=== PATIENT | male | born 1965 | race Caucasian/White ===

== ENCOUNTER 2016-07-05 14:03 | Emergency (ER) | payer MEDICAID ==
[2016-07-05 14:25] VITALS: BP 129/72
--- NOTE | 2016-07-05 14:27 | ERNOTE ---
Lower Extremity HPI - Narrative Date of Service: 07/05/16 - General Lower Extremities Pain: knee: right Time Seen by Provider: 07/05/16 14:15 Source: patient Exam Limitations: no limitations - Immun/Allergies/Home Medications Immunizations: IMMUNIZATION HX Immunizations Up to Date No History of Influenza Vaccine No Hx Pneumococcal Vaccination No Allergies/Adverse Reactions: Allergies Allergy/AdvReac Type Severity Reaction Status Date / Time No Known Allergies Allergy Verified 02/26/16 14:33 Home Medications: HOME MEDICATIONS Tenofovir Disoproxil Fumarate [Viread] 300 mg PO DAILY 04/10/15 [Last Taken Unknown] Furosemide [Lasix] 20 mg PO DAILY 12/13/15 [Last Taken Unknown] Potassium 03/18/16 [Last Taken Unknown] Naproxen [Naprosyn] 500 mg PO BID PRN #60 tab 07/05/16 [Last Taken Unknown] - History of Present Illness Narrative: Pt. comes in with c/o R lateral knee puncture wound that he obtained just prior to arrival from a pocket knife while he was trying to cut wire. Pt. states that his last tetanus shot was 3 months ago. Pt. denies any SOB, CP, NVD, numbness, or tingling. Review of Systems - Review of Systems Constitutional: Present: no symptoms reported. Absent: recent illness, fever, chills, weakness, fatigue, malaise EYE: Present: no symptoms reported ENT: Present: no symptoms reported Respiratory: Present: no symptoms reported. Absent: shortness of breath, cough , wheezing Cardiology: Present: no symptoms reported. Absent: chest pain, palpitations, edema Gastrointestinal/Abdominal: Present: no symptoms reported. Absent: nausea, vomiting, diarrhea Musculoskeletal: Present: no symptoms reported. Absent: back pain, joint pain Skin: Present: other - laceration R lower leg Neurological: Present: no symptoms reported. Absent: headache, dizziness/light- headedness All Other Systems: All systems neg except as marked - Patient's Past Medical History Patient History - Medical: Liver Disease, Other - adenocarcinoma Patient History - Cardiac/Respiratory: No pertinent hx Patient History - Cancer: Lymphoma, Chemotherapy history Patient History - Surgical Procedures: Colon Resection, T & A Patient History - Other: None - Family History Father Family History - Medical: Mother Family History - Medical: No pertinent hx Family History - Cardiac/Respiratory: History Unknown - Social History Living Situations: spouse Abuse History: No History of abuse Psych History: No pertinent hx Does anyone smoke in the home?: No Smoking Status: Current every day smoker Do you dip or chew tobacco: No Alcohol Use: occasionally Drug Use: marijuana - Immunizations Immunizations Up to Date: No Hx Pneumococcal Vaccination: No History of Influenza Vaccine: No Physical Exam - Physical Exam General Appearance: Present: wd/wn, alert, no apparent distress Eye Exam: Normal inspection: bilateral, PERRL: bilateral, EOMI: bilateral Ears, Nose, Throat: Present: normal ENT inspection, hearing grossly normal, normal pharynx Neck: Present: normal inspection, nontender. Absent: lymphadenopathy (R), lymphadenopathy (L) Respiratory: Present: no respiratory distress, normal breath sounds, no accessory muscle use, chest nontender, lungs clear Cardiovascular/Chest: Present: regular rate, rhythm, no murmur, normal peripheral pulses Back Exam: Present: normal inspection, normal range of motion, no CVA tenderness , no vertebral tenderness Extremity Exam: Present: no edema, normal range of motion, other - laceration RLE 1.5cm Neurological Exam: Present: alert, oriented, normal mood/affect, no motor/ sensory deficits ED Progress - Results and Orders Patient's Lab Results:: I have reviewed the patient's lab results. - Vital Signs Patient's Vital Signs:: I have reviewed the patient's vital signs. Vital Signs: Vital Signs 07/05/16 14:06 Temperature 36.1 C L Pulse Rate 114 H Respiratory 18 Rate Blood Pressure 128/72 O2 Sat by Pulse 98 Oximetry - Progress/Reassessment Chief Complaint: Lower Extremity Pain/ Injury Procedures Right Lower Leg Anesthesia: 1% Lidocaine I & D Prep: betadine prep Length of Repair/Wound (cm): 1.5 Wound's Depth/Shape: into subcutaneous, linear Wound Explored: clean, to base, no foreign body Wound Intervention: irrigated w/saline Distal NVT: neuro/vasc intact, no tendon injury Wound Repaired With: sutures Suture Size/Type: 4-0, silk Number of Sutures: 3 Layer Closure: Simple Estimated blood loss (ml): 10 Wound Dressing: sterile dressing applied Complications: Pt judd procedure well Departure Clinical Impression: Laceration Liver failure Qualifiers: Liver failure chronicity: chronic Hepatic coma status: without hepatic coma Qualified Code(s): K72.10 - Chronic hepatic failure without coma - Departure Disposition: Home self-care Condition: Good Instructions: Laceration Care, Adult, [id number] Additional Instructions: Please follow up in 7-10 days for suture removal. Apply neosporin to wound twice a day. Referrals: Primitivo London MD [Primary Care Provider] - Prescriptions: Naproxen [Naprosyn] 500 mg PO BID PRN #60 tab PRN Reason: Pain
[2016-07-05 14:37] LABS: Hematocrit 32.9 % (42.0-52.0); Hemoglobin 11.1 gm/dL (13.5-18.0); Mean Cell Volume 101.9 fl (78-100); Mean Corpuscular Hemoglobin 34.4 pg (27-31); Mean Corpuscular Hgb Conc 33.7 g/dl (32-36); Mean Platelet Volume 8.4 fl (6.0-9.5); Neutrophil # 2.8 K/mm3 (1.3-6.0); Neutrophil % 47.6 % (42-75.0); Platelet Count 108 K/mm3 (150-450); Red Blood Count 3.23 M/mm3 (4.7-6.0); Red Cell Distribution Width 12.9 % (11.5-14.0); White Blood Count 5.9 K/mm3 (4.0-10.5)
[2016-07-05 14:49] LABS: Prothrombin Time (Patient) 12.5 Seconds (9.4-11.4)
[2016-07-05 14:50] LABS: INR 1.2 INR (0.90-1.10)
[2016-07-05 14:52] LABS: Albumin * 2.7 gm/dl (3.4-5.0); Anion Gap 10.5 mmol/L (6.8-13.8); BUN/Creatinine Ratio 12.6 (9.0-21.6); Bilirubin, Total 1.4 mg/dL (0.0-1.1); Ca. Corrected For Albumin 9.6 mg/dL (8.4-10.2); Calcium * 8.9 mg/dL (7.9-10.9); Carbon Dioxide 30.1 mmol/L (24-32.6); Potassium 3.6 mmol/L (3.4-4.6); Total Protein 6.2 gm/dL (6.2-8.2)
--- OUTSIDE RECORDS SUMMARY | 2016-07-05 14:54 | XMS REPORT | Continuity of Care Document ---
:1965 Author Organization [facility] ([facility]) Address [address] [place] [address] Phone [phone] Care Team Providers Name Role Phone Primitivo London Primary Care Provider [phone] Source Comments This disclosure is being made pursuant to the Care Everywhere program, applicable federal and state laws, and may not contain all informaitonavailable regarding this patient.[facility] ([facility]) Active Allergies and Adverse Reactions No Known Allergies Current Medications Prescription Sig. Disp. Refills Start Date End Date Status fluticasone 50 Use 2 sprays in 16 g 11 01/02/2016 Active mcg/Actuation nasal each nostril spray daily. riFAXimin (XIFAXAN) 550 Take 1 tablet 60 tablet 03/14/2016 Active mg tablet (550 mg total) by mouth 2 times daily. lactulose 10 g/15 mL Take 45 mL (30 g 946 mL 03/14/2016 Active solution total) by mouth 3 times daily. tenofovir (VIREAD) 300 Take 1 tablet 30 tablet 03/14/2016 Active mg tablet (300 mg total) by mouth daily. propranolol 10 mg Take 1 tablet 60 tablet 03/14/2016 Active tablet (10 mg total) by mouth 2 times daily. spironolactone 25 mg Take 4 tablets 120 tablet 03/14/2016 Active tablet (100 mg total) by mouth daily. potassium chloride 10 Take 2 tablets 120 tablet 03/14/2016 Active mEq XR tablet (20 mEq total) by mouth 2 times daily. furosemide 40 mg tablet Take 1 tablet 30 tablet 03/14/2016 Active (40 mg total) by mouth daily. 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 This is high risk situationand should start to resolve before he will be ready for discharge. 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 12/04/2014 Degeneration of intervertebral disc, site unspecified 07/15/1999 Most Recent Encounters Date Type Specialty Providers Description 07/02/2016 Office Visit Med GI/Hepatology Default, Other Subj: Upcoming Appt Billg - Defo Reminder Maxime Michel MD Rangarajan Murali, Arvind, MD 06/16/2016 Office Visit Med Hematology and Lorenzo Chen MD Dx: DLBCL ( diffuse Oncology large B cell lymphoma) Immunizations Name Dates Previously Given Next Due Tdap 03/07/2015 Social History Tobacco Use Types Packs/Day Years Used Date Current Some Day Smoker Cigarettes 0.5 40 Smokeless Tobacco: Never Used Tobacco Cessation:Ready to Quit: No; Counseling Given: Yes Comments:He has cut back to a quarter of a pack per day Alcohol Use Drinks/Week oz/Week Comments Yes 0 Standard drinks or equivalent 0.0 He is to take alcohol socially. Histroy of heavy alcohol use Last Filed Vital Signs Vital Sign Reading Time Taken Blood Pressure 130/62 06/16/2016 12:53 PM RAW HIDE TRIMMER Pulse 99 06/16/2016 12:53 PM RAW HIDE TRIMMER Temperature 36.3 C (97.3 F) 06/16/2016 12:53 PM RAW HIDE TRIMMER Respiratory Rate 18 06/16/2016 12:53 PM RAW HIDE TRIMMER Height 1.829 m (6') 01/02/2016 1:55 PM CDT Weight 103.1 kg (227 lb 4.7 oz) 06/16/2016 12:53 PM RAW HIDE TRIMMER Body Mass Index 30.82 06/16/2016 12:53 PM RAW HIDE TRIMMER Oxygen Saturation 97% 06/16/2016 12:53 PM RAW HIDE TRIMMER Plan of Care Date Type Specialty Providers Description 09/03/2016 Appointment Radiology Chief Comp: Patient Reported Reason For Visit 09/03/2016 Appointment Med GI/Hepatology Default, Other Billg - Defo [address] [place] [address] [phone] (Fax) Chief Comp: Patient Maxime Michel MD [address] [place] [address] [phone] (Fax) Reported Reason For Sammy Garcia MD [address] [place] [address] [phone] (Fax) Visit 10/13/2016 Appointment Med Hematology and Lorenzo Chen MD Chief Comp: Patient Oncology [address] [facility] [place] [address] Visit [phone] (Fax) Health Maintenance Due Date Last Done Comments Lipid Disorder Screening 1981 MMR Vaccine 1981 Pneumococcal Vaccine (1 of 3 1982 - PCV13) Colonoscopy 06/11/2013 Prostate Cancer Screening 2013 Influenza Vaccine: Seasonal 12/24/2015 (#1) Td Vaccine 03/07/2025 03/07/2015 HCV Screening Completed 11/21/2014 Tdap Vaccine Completed 03/07/2015 Hepatitis B Vaccine Completed 03/12/2016, Additional history exists 01/02/2016, 01/02/2016 Results from Last 3 Months DIFFERENTIAL (06/16/2016 12:51 PM) Component Value Range % Neutrophils-Auto Diff 44.8 % Neutrophils-Auto Diff 2660 2960-4021 /MM3 % Lymphocytes-Auto Diff 20.2 % Lymphocytes-Auto Diff 7760 291-2295 /MM3 % Monocytes-Auto Diff 9.2 % Monocytes-Auto Diff 550 130-860 /MM3 % Eosinophils-Auto Diff 24.0 % Eosinophils-Auto Diff 1430(H) 40-390 /MM3 % Basophils 1.5 % Basophils-Auto Diff 90 10-136 /MM3 % Immature Granulocytes-Auto Diff 0.3 % Immature Granulocytes-Auto Diff 20 /MM3 Specimen Blood CBC (COMPLETE BLOOD COUNT) (06/16/2016 12:51 PM) Component Value Range WBC Count 6.0 3.7-10.5 K/MM3 RBC Count 3.27(L) 4.50-6.20 M/MM3 Hemoglobin 11.4(L) 13.2-17.7 g/dL Hematocrit 34(L) 40-52 % MCV (Mean Corpuscular Volume) 103(H) 82-99 FL MCH (Mean Corpuscular Hemoglobin) 35 25-35 PG MCHC (Mean Corpuscular Hemoglobin Concentration) 34 32-36 % Platelet Count 89(L) 150-400 K/MM3 MPV (Mean Platelet Volume) 8.7(L) 9.4-12.3 FL RBC Dist Width-STD 49.9(H) 35.1-43.9 FL RBC Distrib Width 13.2 9.0-14.5 % Nucleated RBC 0 /100 WBC Specimen Blood LACTIC ACID DEHYDROGENASE (06/16/2016 12:51 PM) Component Value Range LDH 263(H) 135-225 U/L Specimen Blood CHLORIDE (06/16/2016 12:51 PM) Component Value Range Chloride 103 95-107 mEq/L Specimen Blood BLOOD UREA NITROGEN (06/16/2016 12:51 PM) Component Value Range BUN 6(L) 10-20 mg/dL Specimen Blood ASPARTATE AMINOTRANSFERASE (06/16/2016 12:51 PM) Component Value Range AST 36Comment: 0-40 U/L Adult reference ranges updated on 04/19/13 at 830am Specimen Blood ALANINE AMINOTRANSFERASE (06/16/2016 12:51 PM) Component Value Range ALT 19Comment: 0-41 U/L The upper limit of normal for alanine aminotransferase (ALT) reference ranges for adults is controversial with some authorities recommending limit as low as 30 U/L for males and 19 U/L for females. Th ere is increased incidence of subclinical liver disease (e.g., early steatohepatitis) in patients with ALT values in the range of 31-41 U/L for males and 20-33 U/L for females. ALT values should alway s be interpreted in conjunction with clinical history, physical examination findings, and, if applicable, data from other diagnostic tests. Specimen Blood SODIUM (06/16/2016 12:51 PM) Component Value Range Sodium 140 135-145 mEq/L Specimen Blood TOTAL PROTEIN (06/16/2016 12:51 PM) Component Value Range Total Protein 5.6(L) 6.0-8.0 g/dL Specimen Blood POTASSIUM (06/16/2016 12:51 PM) Component Value Range Potassium 3.4(L) 3.5-5.0 mEq/L Specimen Blood ALKALINE PHOSPHATASE (06/16/2016 12:51 PM) Component Value Range ALP 157(H) 40-129 U/L Specimen Blood GLUCOSE (06/16/2016 12:51 PM) Component Value Range Glucose 129(H)Comment: 65-99 mg/dL The Expert Committee on the Diagnosis and Classification of Diabetes has defined impaired fasting glucose as greater than or equal to 100 mg/dL but less than 126 mg/dL.(Diabetes Care 28 (Suppl 1)S41,2005) Specimen Blood CREATININE (06/16/2016 12:51 PM) Component Value Range Creatinine 0.8Comment: 0.6-1.2 mg/dL Creatinine switched to enzymatic method on 10/01/2010.GFR equation switched to IDMS-traceable MDRD equation on 10/01/2010. Calculated GFR values are not valid in clinical settings where serum creatinine is changing. Calculated GFR >90 >60 mL/min/1.73 m2 Specimen Blood CO2 (06/16/2016 12:51 PM) Component Value Range CO2 28 22-29 mEq/L Anion Gap 9 8-18 mEq/L Specimen Blood CALCIUM (06/16/2016 12:51 PM) Component Value Range Calcium 8.4(L) 8.5-10.5 mg/dL Specimen Blood BILIRUBIN, TOTAL (06/16/2016 12:51 PM) Component Value Range Bilirubin Total 1.0 <=1.2 mg/dL Specimen Blood ALBUMIN (06/16/2016 12:51 PM) Component Value Range Albumin 2.8(L) 3.4-4.8 g/dL Specimen Blood CBC WITH DIFFERENTIAL (06/16/2016 12:51 PM) Specimen Blood Narrative The following orders were created for panel order CBC WITH DIFFERENTIAL. Procedure Abnormality Status --------- ------ CBC (COMPLETE BLOOD COUNT)[[id number]] AbnormalFinal result DIFFERENTIAL[[id number]] AbnormalFinal result Please view results for these tests on the individual orders.
[2016-07-05] MEDS ORDERED: LIDOCAINE HCL 20 ML VIAL ONE (15:08)
== END 2016-07-05 16:55 | disposition home or self-care (01) ==
LOC: ER 14:03
PROC: 0JQN0ZZ Repair Right Lower Leg Subcutaneous Tissue and Fascia, Open Approach (ICD-10-PCS; principal; 2016-07-05)
DX: S81.811A Laceration without foreign body, right lower leg, initial encounter (principal); K72.10 Chronic hepatic failure without coma; Z85.72 Personal history of non-Hodgkin lymphomas; Z92.21 Personal history of antineoplastic chemotherapy; F17.210 Nicotine dependence, cigarettes, uncomplicated; W26.0XXA Contact with knife, initial encounter; Y93.E9 Activity, other interior property and clothing maintenance

== ENCOUNTER 2016-07-25 01:38 | Emergency (ER) | payer MEDICAID ==
[2016-07-25 01:50] VITALS: BP 159/85
--- OUTSIDE RECORDS SUMMARY | 2016-07-25 02:09 | XMS REPORT | Continuity of Care Document ---
:1965 Author Organization [facility] ([facility]) Address [address] [place] [address] Phone [phone] Care Team Providers Name Role Phone Primitivo London Primary Care Provider [phone] Source Comments This disclosure is being made pursuant to the Care Everywhere program, applicable federal and state laws, and may not contain all informaitonavailable regarding this patient.[facility] ([facility]) Active Allergies and Adverse Reactions No Known [...] Taken Blood Pressure 130/62 06/16/2016 12:53 PM SENIOR ELECTRONICS ENGINEER Pulse 99 06/16/2016 12:53 PM SENIOR ELECTRONICS ENGINEER Temperature 36.3 C (97.3 F) 06/16/2016 12:53 PM SENIOR ELECTRONICS ENGINEER Respiratory Rate 18 06/16/2016 12:53 PM SENIOR ELECTRONICS ENGINEER Height 1.829 m (6') 01/02/2016 1:55 PM CDT Weight 103.1 kg (227 lb 4.7 oz) 06/16/2016 12:53 PM SENIOR ELECTRONICS ENGINEER Body Mass Index 30.82 06/16/2016 12:53 PM SENIOR ELECTRONICS ENGINEER Oxygen Saturation 97% 06/16/2016 12:53 PM SENIOR ELECTRONICS ENGINEER Plan of Care Date Type Specialty Providers Description 09/03/2016 Appointment Radiology Chief Comp: Patient Reported Reason For Visit 09/03/2016 Appointment Med GI/Hepatology Default, Other Billg - Defo [address] [place] [address] [phone] (Fax) Chief Comp: Patient Maxime Michel MD [address] [place] [address] [phone] (Fax) Reported Reason For Sammy Garcia MD [address] [place] [address] [phone] (Fax) Visit 10/13/2016 Appointment Med Hematology and Lorenzo Chen MD Chief Comp: Patient Oncology [address] [facility] [place] [address] Visit [phone] (Fax) Health Maintenance Due Date Last Done [...] Neutrophils-Auto Diff 44.8 % Neutrophils-Auto Diff 2660 4363-2829 /MM3 % Lymphocytes-Auto Diff 20.2 % Lymphocytes-Auto Diff 9727 648-2396 /MM3 % Monocytes-Auto Diff 9.2 % Monocytes-Auto [...] Abnormality Status --------- ------ CBC (COMPLETE BLOOD COUNT)[[id number]] AbnormalFinal result DIFFERENTIAL[[id number]] AbnormalFinal result Please view results for these tests on the individual orders.
[2016-07-25 02:11] LABS: Hematocrit 36.9 % (42.0-52.0); Hemoglobin 12.5 gm/dL (13.5-18.0); Mean Cell Volume 103.1 fl (78-100); Mean Corpuscular Hemoglobin 34.9 pg (27-31); Mean Corpuscular Hgb Conc 33.9 g/dl (32-36); Mean Platelet Volume 8.4 fl (6.0-9.5); Neutrophil # 2.1 K/mm3 (1.3-6.0); Neutrophil % 44.9 % (42-75.0); Platelet Count 114 K/mm3 (150-450); Red Blood Count 3.58 M/mm3 (4.7-6.0); Red Cell Distribution Width 13.1 % (11.5-14.0); White Blood Count 4.7 K/mm3 (4.0-10.5)
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
[2016-07-25 02:36] LABS: Albumin * 2.8 gm/dl (3.4-5.0); Anion Gap 11.8 mmol/L (6.8-13.8); BUN/Creatinine Ratio 18.6 (9.0-21.6); Ca. Corrected For Albumin 9.4 mg/dL (8.4-10.2); Calcium * 8.8 mg/dL (7.9-10.9); Carbon Dioxide 25.9 mmol/L (24-32.6); Potassium 3.7 mmol/L (3.4-4.6); Total Protein 7.3 gm/dL (6.2-8.2)
== END 2016-07-25 02:49 ==
LOC: ER 01:38
DX: R42 Dizziness and giddiness (principal); Z18.89 Other specified retained foreign body fragments; Z48.02 Encounter for removal of sutures

== ENCOUNTER 2016-07-25 12:35 | Emergency (ER) | payer MEDICAID ==
[2016-07-25 12:42] VITALS: BP 161/90
--- NOTE | 2016-07-25 12:44 | ERNOTE ---
Medical Problem HPI - Narrative Date of Service: 07/25/16 - General Chief Complaint: General Assessment Time Seen by Provider: 07/25/16 12:42 Source: patient, police Exam Limitations: no limitations - Immun/Allergies/Home Medications Immunizations: IMMUNIZATION HX Immunizations Up to Date No History of Influenza Vaccine No Hx Pneumococcal Vaccination No Allergies/Adverse Reactions: Allergies No Known Allergies Allergy (Verified 07/25/16 12:42) Home Medications: HOME MEDICATIONS Tenofovir Disoproxil Fumarate [Viread] 300 mg PO DAILY 04/10/15 [Last Taken Unknown] Furosemide [Lasix] 20 mg PO DAILY 12/13/15 [Last Taken Unknown] Potassium 03/18/16 [Last Taken Unknown] Naproxen [Naprosyn] 500 mg PO BID PRN #60 tab 07/05/16 [Last Taken Unknown] - History of Present History Narrative: Patient was send by the Medical Staff at the [facility] to be evaluated for a Stroke. Timing: other - Patient has no medical problem to report. Modifying Factors - (Improves): Present: other - nothing Modifying Factors - (Worsens): Present: other - nothing Review of Systems - Review of Systems Constitutional: Present: no symptoms reported. Absent: fever, chills EYE: Present: no symptoms reported ENT: Present: no symptoms reported Respiratory: Present: no symptoms reported. Absent: shortness of breath, cough Cardiology: Present: no symptoms reported. Absent: chest pain Gastrointestinal/Abdominal: Present: no symptoms reported. Absent: nausea, vomiting, diarrhea, abdominal pain Genitourinary: Present: no symptoms reported Skin: Present: no symptoms reported Neurological: Present: no symptoms reported. Absent: headache, dizziness/light- headedness, seizure, weakness, numbness, tingling, tremors Endocrine: Present: no symptoms reported Hematologic/Lymphatic: Present: no symptoms reported Psych: Present: no symptoms reported All Other Systems: All systems neg except as marked - Patient's Past Medical History Patient History - Medical: Liver Disease, Other Patient History - Cardiac/Respiratory: No pertinent hx, Hypertension Patient History - Cancer: Lymphoma, Chemotherapy history Patient History - Surgical Procedures: Colon Resection, T & A Patient History - Other: None - Family History Father Family History - Medical: Mother Family History - Medical: No pertinent hx Family History - Cardiac/Respiratory: History Unknown - Social History Living Situations: home Abuse History: No History of abuse Psych History: No pertinent hx Does anyone smoke in the home?: No Alcohol Use: occasionally Drug Use: marijuana - Immunizations Immunizations Up to Date: No Hx Pneumococcal Vaccination: No History of Influenza Vaccine: No Physical Exam - Physical Exam General Appearance: Present: wd/wn, alert, no apparent distress Eye Exam: Normal inspection: bilateral Ears, Nose, Throat: Present: normal ENT inspection Neck: Present: normal inspection, nontender Respiratory: Present: no respiratory distress, normal breath sounds, no accessory muscle use, chest nontender, lungs clear Cardiovascular/Chest: Present: regular rate, rhythm, no murmur, normal peripheral pulses Gastrointestinal/Abdominal: Present: normal bowel sounds, nontender, nondistended, soft, no organomegaly Back Exam: Present: normal inspection, normal range of motion, no CVA tenderness , no vertebral tenderness Extremity Exam: Present: normal inspection, non-tender, normal range of motion, no edema, other - Patient moving all extremities with a 5/5 force. No pronator drift found on evaluation. Neurological Exam: Present: alert, oriented, normal mood/affect, no motor/ sensory deficits, neonatal icu coordinator II-XII nml as tested Skin Exam: Present: normal color, warm/dry Lymphatic Exam: Present: no adenopathy ED Progress - Date and Time Seen: Date and Time: 07/25/16 12:47 GCS: 15/15 NIH Stroke Scale: 0 Patient at the moment does not know why he was send to the ER. RN at the ER stated that MUSHROOM SORTER GRADER from the senior care send patient to be evaluated for stroke. Patient at the moment has no pain, no gross neurological deficits, good force in all extremities, propioception, an intact mental status, no pain, no respiratory distress, and feeling good. At this point patient has a very low probability of any acute neurological condition. Patient has no identified emergency and has no limb threatening condition. Patient is welcome back to return if any symptom occurs and can be reproducible at the ER. - Vital Signs Patient's Vital Signs:: I have reviewed the patient's vital signs. Vital Signs: Vital Signs 07/25/16 12:37 Temperature 36.5 C Pulse Rate 85 Respiratory 12 Rate Blood Pressure 161/90 O2 Sat by Pulse 99 Oximetry - Progress/Reassessment Chief Complaint: General Assessment - Transfer of Care Expected Disposition: Discharge Departure - Departure Clinical Impression: Evaluation by medical service required Disposition: Assisted Instructions: Stroke Prevention Additional Instructions: GCS: 15/15 NIH Stroke Scale: 0 Patient at the moment does not know why he was send to the ER. RN at the ER stated that MUSHROOM SORTER GRADER from the senior care send patient to be evaluated for stroke. Patient at the moment has no pain, no gross neurological deficits, good force in all extremities, propioception, an intact mental status, no pain, no respiratory distress, and feeling good. At this point patient has a very low probability of any acute neurological condition. Patient has no identified emergency and has no limb threatening condition. Patient is welcome back to return if any symptom occurs and can be reproducible at the ER.
--- OUTSIDE RECORDS SUMMARY | 2016-07-25 12:53 | XMS REPORT | Continuity of Care Document ---
:1965 Author Organization [facility] ([facility]) Address [address] [place] [address] Phone [phone] Care Team Providers Name Role Phone Primitivo London Primary Care Provider [phone] Source Comments This disclosure is being made pursuant to the Care Everywhere program, applicable federal and state laws, and may not contain all informaitonavailable regarding this patient.[facility] ([facility]) Active Allergies and Adverse Reactions No Known [...] Recent Encounters Date Type Specialty Providers Description 07/25/2016 Telephone Cancer Center Jenifer Sanchez 07/25/2016 Telephone Cancer Center Graciela Rodriguez Chief Comp: Fall 07/02/2016 Office Visit Med GI/Hepatology Default, Other [...] Taken Blood Pressure 130/62 06/16/2016 12:53 PM BED WORKER Pulse 99 06/16/2016 12:53 PM BED WORKER Temperature 36.3 C (97.3 F) 06/16/2016 12:53 PM BED WORKER Respiratory Rate 18 06/16/2016 12:53 PM BED WORKER Height 1.829 m (6') 01/02/2016 1:55 PM CDT Weight 103.1 kg (227 lb 4.7 oz) 06/16/2016 12:53 PM BED WORKER Body Mass Index 30.82 06/16/2016 12:53 PM BED WORKER Oxygen Saturation 97% 06/16/2016 12:53 PM BED WORKER Plan of Care Date Type Specialty Providers Description 09/03/2016 Appointment Radiology Chief Comp: Patient Reported Reason For Visit 09/03/2016 Appointment Med GI/Hepatology Default, Other Billg - Defo [address] [place] [address] [phone] (Fax) Chief Comp: Patient Maxime Michel MD [address] [place] [address] [phone] (Fax) Reported Reason For Sammy Garcia MD [address] [place] [address] [phone] (Fax) Visit 10/13/2016 Appointment Med Hematology and Lorenzo Chen MD Chief Comp: Patient Oncology [address] [facility] [place] [address] Visit [phone] (Fax) Health Maintenance Due Date Last Done [...] Neutrophils-Auto Diff 44.8 % Neutrophils-Auto Diff 2660 [id number] /MM3 % Lymphocytes-Auto Diff 20.2 % Lymphocytes-Auto Diff 2394 515-7348 /MM3 % Monocytes-Auto Diff 9.2 % Monocytes-Auto [...] Abnormality Status --------- ------ CBC (COMPLETE BLOOD COUNT)[[id number]] AbnormalFinal result DIFFERENTIAL[[id number]] AbnormalFinal result Please view results for these tests on the individual orders.
== END 2016-07-25 13:00 ==
LOC: ER 12:35
DX: Z03.89 Encounter for observation for other suspected diseases and conditions ruled out (principal)

== ENCOUNTER 2016-09-21 12:31 | Emergency (ER) | payer MEDICAID ==
[2016-09-21 13:16] LABS: Hematocrit 38.9 % (42.0-52.0); Hemoglobin 13.5 gm/dL (13.5-18.0); Mean Corpuscular Hgb Conc 34.7 g/dl (32-36); Mean Platelet Volume 8.7 fl (6.0-9.5); Neutrophil # 2.9 K/mm3 (1.3-6.0); Neutrophil % 48.1 % (42-75.0); Platelet Count 123 K/mm3 (150-450); Red Blood Count 3.97 M/mm3 (4.7-6.0); Red Cell Distribution Width 12.9 % (11.5-14.0); White Blood Count 6.1 K/mm3 (4.0-10.5)
[2016-09-21] MEDS ORDERED: MECLIZINE HCL 25 MG TABLET PO ONE (13:23)
[2016-09-21] MEDS ORDERED: MECLIZINE HCL 25 MG TABLET ONE (13:26)
[2016-09-21 13:28] LABS: Albumin * 2.8 gm/dl (3.4-5.0); Anion Gap 9.5 mmol/L (6.8-13.8); Bilirubin, Total 1.1 mg/dL (0.0-1.1); Ca. Corrected For Albumin 9.6 mg/dL (8.4-10.2); Carbon Dioxide 28.7 mmol/L (24-32.6); Magnesium 1.3 mg/dL (1.2-2.8); Potassium 4.2 mmol/L (3.4-4.6); Total Protein 6.9 gm/dL (6.2-8.2)
--- OUTSIDE RECORDS SUMMARY | 2016-09-21 13:28 | XMS REPORT | Continuity of Care Document ---
:1965 Author Organization [facility] ([facility]) Address [address] [place] [address] Phone [phone] Care Team Providers Name Role Phone Primitivo London Primary Care Provider [phone] Source Comments This disclosure is being made pursuant to the Care Everywhere program, applicable federal and state laws, and may not contain all informaitonavailable regarding this patient.[facility] ([facility]) Active Allergies and Adverse Reactions No Known Allergies Current Medications Prescription Sig. Disp. Refills Start Date End Date Status fluticasone 50 Use 2 sprays in 16 g 01/02/2016 Active mcg/Actuation nasal each nostril spray [...] Recent Encounters Date Type Specialty Providers Description 09/19/2016 Telephone Transplant Mikaela George Chief Comp: Scheduling 09/12/2016 Telephone Transplant Mikaela George Chief Comp: Scheduling 09/12/2016 Telephone Transplant Mikaela George Chief Comp: Scheduling 09/12/2016 Telephone Food And Beverage Intern Zhane Saha Chief Comp: Other CILNICAL SCIENTIST 09/09/2016 Orders Only Transplant Moni Kelley Dx: Pre- transplant MD Kenneth evaluation for chronic liver disease (Primary Dx) 09/05/2016 Abstract Transplant Jackie Benites 09/05/2016 Orders/Notes Transplant MIKE/Chad Dykes MD 09/03/2016 Hospital Encounter Radiology Ehsan Padilla, Dx: Cirrhosis of MD liver with ascites, unspecified hepatic cirrhosis type 09/03/2016 Office Visit Med GI/Hepatology Default, Other Dx: Chronic viral Billg - Defo hepatitis B without Maxime Michel, deloris and with delta agent (Primary Dx) Adiel Field MD Rangarajan Murali, Arvind, MD 08/21/2016 Telephone Med Hematology and Ny Negron RN Chief Comp: Forms Oncology and Letters Requests 07/25/2016 Telephone Cancer Center Jenifer Sanchez 07/25/2016 Telephone Cancer Center Graciela Rodriguez Chief Comp: Fall 07/02/2016 Office Visit Med GI/Hepatology Default, Other Subj: Upcoming Appt Billg - Defo Reminder Maxime Michel MD Rangarajan Murali, Arvind, MD Immunizations Name Dates Previously Given Next Due Tdap 03/07/2015 Social History Tobacco Use Types Packs/Day Years Used Date Current Some Day Smoker Cigarettes 0.5 40 Smokeless Tobacco: Never Used Tobacco Cessation:Counseling Given: Yes Comments:He has cut back to a quarter of a pack per day Alcohol Use Drinks/Week oz/Week Comments Yes 0 Standard drinks or equivalent 0.0 He is to take alcohol socially. Histroy of heavy alcohol use Last Filed Vital Signs Vital Sign Reading Time Taken Blood Pressure 137/77 09/03/2016 3:43 PM CDT Pulse 89 09/03/2016 3:43 PM CDT Temperature 35.9 C (96.6 F) 09/03/2016 3:43 PM CDT Respiratory Rate 18 06/16/2016 12:53 PM TAPPER SHANK Height 1.83 m (6' 0.05") 09/03/2016 3:43 PM CDT Weight 106.9 kg (235 lb 10.8 oz) 09/03/2016 3:43 PM CDT Body Mass Index 31.92 09/03/2016 3:43 PM CDT Oxygen Saturation 97% 06/16/2016 12:53 PM TAPPER SHANK Plan of Care Date Type Specialty Providers Description 09/26/2016 Appointment Med Hematology and Christopher Byres MD Subj: Upcoming Appt Oncology [address] [place] [address] [phone] (Fax) 10/13/2016 Appointment Med Hematology and Lorenzo Chen MD Chief Comp: Patient Oncology [address] [place] [address] Visit [phone] (Fax) Health Maintenance Due Date Last Done Comments Lipid Disorder Screening 1981 MMR Vaccine 1981 Pneumococcal Vaccine (1 of 3 1982 - PCV13) Colonoscopy 06/11/2013 Prostate Cancer Screening 2013 Influenza Vaccine: Seasonal 12/23/2016 (Season Ended) Td Vaccine 03/07/2025 03/07/2015 HCV Screening Completed 11/21/2014 Tdap Vaccine Completed 03/07/2015 Hepatitis B Vaccine Completed 09/09/2016, Additional history exists 09/03/2016, 03/12/2016 Results from Last 3 Months MRI ABDOMEN W/WO CONTRAST ([id number]) (09/03/2016 3:03 PM) Addenda Addendum by Kyra Rangel MD on 09/05/2016 9:29 AM Addendum (Jose Rangel, 0926 hours on 09/05/2016): The right hepatic dome lesion has characteristics of a LIRADS 5 lesion (not LR 4 as initially reported), due to washout to hypointensity and size greater than 20 mm. Impressions Impression: 1. Right hepatic dome lesion now shows increase in size and central washout to hypointensity, concerning for HCC (LR 4) 2. 3 other early arterially enhancing lesions which demonstrate washout to isointensity on the delayed phase images, consistent with LI-RADS 3 lesions.2 are stable and one is new.All are less than 8 mm in size.Can be followed on surveillance imaging with MRI. 3. Improving periportal changes which could represent inflammation or fibrosis.Mild adjacent parenchymal likely perfusion related changes in segment IVb. 4. Cirrhotic liver with changes of portal hypertension, including gastrohepatic ligament varices. 5.Mild gallbladder wall thickening and enhancement, likely secondary to chronic hepatocellular disease. 6.Splenomegaly, which could be related to patient's history of lymphoma or portal hypertension Narrative Procedure: MRI ABDOMEN W/WO CONTRAST ([id number]) Clinical Indication: Cirrhosis, LIRADS 3 lesion on last MRI. Follow-up with MRI with gadolinium.History of diffuse large B cell lymphoma. Technique: MRI of the abdomen with attention to the liver was performed on a 1.5 Charito scanner using a surface multicoil. Imaging consisted of 3 plane TrueFISP localizer, coronal HASTE T2 localizer, axial T1 FLASH in- and [id number], axial T2 fat-sat MARICRUZ, axial T2* GRE, axial long TE T2 HASTE, axial diffusion weighted imaging, axial fat-sat T1 FLASH, and pre-contrast and multiphase post-contrast axial fat-sat T1 3D VIBE.Imaging was performed before and after administration of IV Gadavist. 11 ml of IV contrast was administered. Comparison:None. Findings: Lower chest: Normal Liver: Liver measures 15.8 cm in its craniocaudal dimension. Reticular high T2 signal intensity changes consistent with cirrhosis Several unchanged tiny cysts in the liver measuring 4 mm or less. There is a 2.2 x 1.5 cm arterial enhancing lesion at the right liver dome, previously 1.7 x 1.3 cm when remeasured in the same plane. Remains mildly hyperenhancing on the portal venous phase and washes out to central hypointensity on the later phase images (16-12). Unchanged 4 mm lesion peripherally in segment 8, less conspicuous today due to contrast bolus timing differences (14-23) with fade to isointensity.Unchanged 3 mm early arterially enhancing lesion in segment 2 of the liver (14-21) which also demonstrates fade to isointensity on the delayed images.New nearby lesion also in segment 2 (also image 14-22) measuring 2 mm. There is decreased high T2 signal intensity surrounding the portal triads (5-13).Persistent likely perfusion related transient arterial hyperenhancement in segment 4B (14-31).Patent portal and hepatic veins. Mildly prominent gómez hepatis and portacaval lymph nodes. Bile ducts: Nondilated. Gallbladder: Mild bladder wall thickening, slightly improved. No gallstones. No pericholecystic fluid. Pancreas: Normal. Spleen: Enlarged, measuring 15.3 cm. Adrenal glands: Normal Kidneys: Unchanged subcentimeter bilateral renal cysts. Ureters: Normal Aorta: Normal Retroperitoneum: Subcentimeter periaortic lymph nodes. Peritoneum: No ascites. Mesentery: Varices in the gastrohepatic ligament. Stomach: Not distended. Distal paraesophageal varices seen. Small bowel: Not distended. Colon: Not distended. Appendix: Not identified. Abdominal wall: Normal. Bones: Normal. Procedure Note Daniel, Incoming Imaging Results - Brigid Sep 04, 2016 9:21 AM CDT Procedure: MRI ABDOMEN W/WO CONTRAST ([id number]) Clinical Indication: Cirrhosis, LIRADS 3 lesion on last MRI. Follow-up with MRI with gadolinium. History of diffuse large B cell lymphoma. Technique: MRI of the abdomen with attention to the liver was performed on a 1.5 Charito scanner using a surface multicoil. Imaging consisted of 3 plane TrueFISP localizer, coronal HASTE T2 localizer, axial T1 FLASH in- and [id number], axial T2 fat-sat MARICRUZ, axial T2* GRE, axial long TE T2 HASTE, axial diffusion weighted imaging, axial fat-sat T1 FLASH, and pre-contrast and multiphase post-contrast axial fat-sat T1 3D VIBE. Imaging was performed before and after administration of IV Gadavist. 11 ml of IV contrast was administered. Comparison: None. Findings: Lower chest: Normal Liver: Liver measures 15.8 cm in its craniocaudal dimension. Reticular high T2 signal intensity changes consistent with cirrhosis Several unchanged tiny cysts in the liver measuring 4 mm or less. There is a 2.2 x 1.5 cm arterial enhancing lesion at the right liver dome, previously 1.7 x 1.3 cm when remeasured in the same plane. Remains mildly hyperenhancing on the portal venous phase and washes out to central hypointensity on the later phase images (16-12). Unchanged 4 mm lesion peripherally in segment 8, less conspicuous today due to contrast bolus timing differences (14-23) with fade to isointensity. Unchanged 3 mm early arterially enhancing lesion in segment 2 of the liver (14-21) which also demonstrates fade to isointensity on the delayed images. New nearby lesion also in segment 2 (also image 14-22) measuring 2 mm. There is decreased high T2 signal intensity surrounding the portal triads (5-13). Persistent likely perfusion related transient arterial hyperenhancement in segment 4B (14-31). Patent portal and hepatic veins. Mildly prominent gómez hepatis and portacaval lymph nodes. Bile ducts: Nondilated. Gallbladder: Mild bladder wall thickening, slightly improved. No gallstones. No pericholecystic fluid. Pancreas: Normal. Spleen: Enlarged, measuring 15.3 cm. Adrenal glands: Normal Kidneys: Unchanged subcentimeter bilateral renal cysts. Ureters: Normal Aorta: Normal Retroperitoneum: Subcentimeter periaortic lymph nodes. Peritoneum: No ascites. Mesentery: Varices in the gastrohepatic ligament. Stomach: Not distended. Distal paraesophageal varices seen. Small bowel: Not distended. Colon: Not distended. Appendix: Not identified. Abdominal wall: Normal. Bones: Normal. IMPRESSION Impression: 1. Right hepatic dome lesion now shows increase in size and central washout to hypointensity, concerning for HCC (LR 4) 2. 3 other early arterially enhancing lesions which demonstrate washout to isointensity on the delayed phase images, consistent with LI-RADS 3 lesions. 2 are stable and one is new. All are less than 8 mm in size.Can be followed on surveillance imaging with MRI. 3. Improving periportal changes which could represent inflammation or fibrosis. Mild adjacent parenchymal likely perfusion related changes in segment IVb. 4. Cirrhotic liver with changes of portal hypertension, including gastrohepatic ligament varices. 5. Mild gallbladder wall thickening and enhancement, likely secondary to chronic hepatocellular disease. 6. Splenomegaly, which could be related to patient's history of lymphoma or portal hypertension HEPATIC FUNCTION PANEL (09/03/2016 1:15 PM) Component Value Range Albumin 2.8(L) 3.4-4.8 g/dL ALP 138(H) 40-129 U/L Bilirubin Total 1.0 <=1.2 mg/dL Bilirubin, Direct 0.3(H) 0.0-0.2 mg/dL AST 46(H)Comment: 0-40 U/L Adult reference ranges updated on 04/19/13 at 830am ALT 22Comment: 0-41 U/L The upper limit of normal [...] if applicable, data from other diagnostic tests. Total Protein 6.0 6.0-8.0 g/dL Specimen Blood HEPATITIS B VIRUS DNA QUANT PCR (09/03/2016 1:15 PM) Component Value Range HBV Quant, Log IU/mL Not Detected Not Detected LOG IU HBV Quant, IU/mL Not Detected Not Detected IU/mL Specimen Blood Narrative Test methodology:PCR amplification; [facility] HBV Test ([facility] ) ALPHA-FETOPROTEIN (09/03/2016 1:15 PM) Component Value Range AFP 5.0 0.0-9.0 ng/mL Specimen Blood PT/INR (PROTHROMBIN TIME/INR) VENOUS (09/03/2016 1:15 PM) Component Value Range PT (Prothrombin Time) 13(H) 9-12 secs INR 1.3 <4.0 Specimen Blood BASIC METABOLIC PANEL W/ CALCIUM (CHEM 8) (09/03/2016 1:15 PM) Component Value Range Sodium 140 135-145 mEq/L Potassium 3.3(L) 3.5-5.0 mEq/L Chloride 103 95-107 mEq/L CO2 28 22-29 mEq/L BUN 7(L) 10-20 mg/dL Creatinine 0.7Comment: 0.6-1.2 mg/dL Creatinine switched to enzymatic method on 10/01/2010.GFR equation switched to IDMS-traceable MDRD equation on 10/01/2010. Calculated GFR values are not valid in clinical settings where serum creatinine is changing. Glucose 115(H)Comment: 65-99 mg/dL The Expert Committee on the Diagnosis and Classification of Diabetes has defined impaired fasting glucose as greater than or equal to 100 mg/dL but less than 126 mg/dL.(Diabetes Care 28 (Suppl 1)S41,2005) Calcium 8.5 8.5-10.5 mg/dL Anion Gap 9 mEq/L Calculated GFR >90 >60 mL/min/1.73 m2 Specimen Blood CBC (COMPLETE BLOOD COUNT) (09/03/2016 1:15 PM) Component Value Range WBC Count 3.8 3.7-10.5 K/MM3 RBC Count 3.36(L) 4.50-6.20 M/MM3 Hemoglobin 11.4(L) 13.2-17.7 g/dL Hematocrit 33(L) 40-52 % MCV (Mean Corpuscular Volume) 99 82-99 FL MCH (Mean Corpuscular Hemoglobin) 34 25-35 PG MCHC (Mean Corpuscular Hemoglobin Concentration) 34 32-36 % Platelet Count 91(L) 150-400 K/MM3 MPV (Mean Platelet Volume) 8.4(L) 9.4-12.3 FL RBC Dist Width-STD 46.5(H) 35.1-43.9 FL RBC Distrib Width 12.8 9.0-14.5 % Nucleated RBC 0 /100 WBC Specimen Whole Blood
[2016-09-21 13:35] LABS: Prothrombin Time (Patient) 11.9 Seconds (9.4-11.4)
[2016-09-21 13:36] LABS: INR 1.14 INR (0.90-1.10)
[2016-09-21] MEDS ORDERED: NORMAL SALINE 1,000 ML IV ONE (13:38)
[2016-09-21] MEDS ORDERED: NORMAL SALINE 1,000 ML in NORMAL SALINE 1,000 ML IV ONE (13:38)
--- NOTE | 2016-09-21 14:00 | ERNOTE ---
Dizziness ER Record Presenting Symptoms: dizziness Time Seen by Provider: 09/21/16 13:12 Source: patient, family Immunizations: IMMUNIZATION HX Immunizations Up to Date Yes History of Influenza Vaccine No Hx Pneumococcal Vaccination No Allergies/Adverse Reactions: Allergies Allergy/AdvReac Type Severity Reaction Status Date / Time No Known Allergies Allergy Verified 09/21/16 12:50 Home Medications: HOME MEDICATIONS Furosemide [Lasix] 20 mg PO DAILY 12/13/15 [Last Taken Unknown] Potassium 03/18/16 [Last Taken Unknown] Meclizine HCl [Antivert] 25 mg PO TID PRN #20 tablet 09/21/16 [Last Taken Unknown] Tenofovir Disoproxil Fumarate [Viread] 250 mg PO DAILY 09/21/16 [Last Taken Unknown] - History of Present Illness Narrative: Patient presents with dizziness if he gets up too quickly from a lying or sitting position. Patient has known liver cancer although according to the family it appears to be in reasonable remission at this point. Patient denies any pain or any other difficulties except for some bruising from when he got up and fell when he got dizzier than normal. Date (Duration): 09/16/16 Timing and Duration: gradual onset Noted on awakening:: No Severity: max: moderate Severity: currently: mild Associated Symptoms: Present: none Sense of movement: Present: spinning Fainted/near fainted while:: Present: standing Decreased ability to stand/walk:: Present: cane Usually:: Present: uses a cane/walker Modifying Factors - (Improves): Reports: other - lying down Modifying Factors - (Worsens): Reports: standing position Review of Systems - Review of Systems Constitutional: Present: See HPI EYE: Present: no symptoms reported ENT: Present: no symptoms reported Respiratory: Present: no symptoms reported Cardiology: Present: no symptoms reported Gastrointestinal/Abdominal: Present: no symptoms reported Genitourinary: Present: no symptoms reported Musculoskeletal: Present: no symptoms reported Skin: Present: no symptoms reported Neurological: Present: no symptoms reported Endocrine: Present: no symptoms reported Hematologic/Lymphatic: Present: no symptoms reported Psych: Present: no symptoms reported - Patient's Past Medical History Patient History - Medical: Liver Disease, Other Patient History - Cardiac/Respiratory: No pertinent hx, Hypertension Patient History - Cancer: Lymphoma Patient History - Surgical Procedures: Colon Resection Patient History - Other: None - Family History Father Family History - Medical: Mother Family History - Medical: No pertinent hx Family History - Cardiac/Respiratory: History Unknown - Social History Living Situations: home Abuse History: No History of abuse Psych History: No pertinent hx Does anyone smoke in the home?: No Smoking Status: Current every day smoker Alcohol Use: none Drug Use: none - Immunizations Immunizations Up to Date: Yes Hx Pneumococcal Vaccination: No History of Influenza Vaccine: No Physical Exam - Physical Exam General Appearance: Present: wd/wn, alert, no apparent distress Eye Exam: Normal inspection: bilateral, PERRL: bilateral Ears, Nose, Throat: Present: normal ENT inspection, H, normal pharynx Neck: Present: normal inspection, nontender Respiratory: Present: no respiratory distress, normal breath sounds, no accessory muscle use, chest nontender, lungs clear Cardiovascular/Chest: Present: regular rate, rhythm, no murmur, normal peripheral pulses Gastrointestinal/Abdominal: Present: normal bowel sounds, nontender, nondistended, soft, no organomegaly Rectal Exam: Present: deferred Back Exam: Present: normal inspection, normal range of motion Extremity Exam: Present: normal inspection, non-tender, no edema, normal range of motion Neurological Exam: Present: alert, oriented, normal mood/affect Skin Exam: Present: normal color, warm/dry Lymphatic Exam: Present: no adenopathy ED Progress - Results and Orders Patient's Lab Results:: I have reviewed the patient's lab results. - Vital Signs Patient's Vital Signs:: I have reviewed the patient's vital signs. Vital Signs: Vital Signs 09/21/16 09/21/16 09/21/16 12:40 12:57 13:00 Temperature 36.8 C Pulse Rate 91 96 93 Respiratory 18 11 L Rate Blood Pressure 127/84 129/73 O2 Sat by Pulse 99 Oximetry 09/21/16 13:32 Temperature Pulse Rate 89 Respiratory Rate Blood Pressure O2 Sat by Pulse Oximetry - Progress/Reassessment Chief Complaint: Dizziness Progress:: Improved Plan - Plan Plan: Orthostatic hypotension test revealed that the patient was indeed orthostatic and when he stood his blood pressure fell and became dizzy again. Patient was given 1 L of normal saline and 25 mg of meclizine his blood pressure improved and he felt substantially better. Patient will discuss the role of Lasix at this point in his care with his family physician. Departure Clinical Impression: Orthostatic hypotension - Departure Disposition: Home self-care Condition: Good Instructions: Hypotension, [id number], Orthostatic Hypotension Referrals: Primitivo London MD [Primary Care Provider] - Prescriptions: Meclizine HCl [Antivert] 25 mg PO TID PRN #20 tablet PRN Reason: Vertigo
[2016-09-21 15:20] VITALS: BP 126/70
== END 2016-09-21 15:17 | disposition home or self-care (01) ==
LOC: ER 12:31
DX: I95.1 Orthostatic hypotension (principal); Z72.0 Tobacco use; Z85.72 Personal history of non-Hodgkin lymphomas; K76.9 Liver disease, unspecified

== ENCOUNTER 2017-03-21 18:29 | Observation (INO) | payer MEDICAID, MEDICARE ==
--- NOTE | 2017-03-21 18:57 | ERNOTE ---
Medical Problem HPI - Narrative Date of Service: 03/21/17 - General Chief Complaint: General Assessment Time Seen by Provider: 03/21/17 18:40 Source: patient Exam Limitations: no limitations - Immun/Allergies/Home Medications Immunizations: IMMUNIZATION HX Immunizations Up to Date Yes History of Influenza Vaccine No Hx Pneumococcal Vaccination No Allergies/Adverse Reactions: Allergies No Known Allergies Allergy (Verified 03/21/17 18:34) Home Medications: HOME MEDICATIONS Furosemide [Lasix] 20 mg PO DAILY 12/13/15 [Last Taken Unknown] Potassium 03/18/16 [Last Taken Unknown] Meclizine HCl [Antivert] 25 mg PO TID PRN #20 tablet 09/21/16 [Last Taken Unknown] Tenofovir Disoproxil Fumarate [Viread] 250 mg PO DAILY 09/21/16 [Last Taken Unknown] - History of Present History Narrative: Patient presents to the ED feeling like he has the flu. He relates that he has been feeling poorly for the last day and a half. He just doesn't feel right. He feels like his joints are aching like he has the flu. No fever. no CP or SOB. No cough, ST or nasal congestion. He states he did have on runny stool yesterday but no blood and no other diarrhea. No vomiting. NO CP or SOB. no abdominal pain. He relates the he has occasionally been somewhat dizzy with standing but not every time. No focal N/T/W. He tells me he just wanted to get checked to make sure nothing is wrong. No other localizing symptoms. Has not seen anyone else for this. no localizing joint pains, just an all-over aching sensation Timing: constant Severity: mild Modifying Factors - (Improves): Present: other - nothing Modifying Factors - (Worsens): Present: other - nothing Review of Systems - Review of Systems Constitutional: Absent: fever ENT: Absent: sore throat Respiratory: Absent: shortness of breath Cardiology: Absent: chest pain Gastrointestinal/Abdominal: Absent: vomiting, abdominal pain Genitourinary: Absent: dysuria Musculoskeletal: Present: other - joits aching Skin: Absent: rash Neurological: Absent: weakness - Patient's Past Medical History Patient History - Medical: Liver Disease, Other Patient History - Cardiac/Respiratory: No pertinent hx, Hypertension Patient History - Cancer: Lymphoma Patient History - Surgical Procedures: Colon Resection Patient History - Other: None - Family History Father Family History - Medical: Mother Family History - Medical: No pertinent hx Family History - Cardiac/Respiratory: History Unknown - Social History Abuse History: No History of abuse Psych History: No pertinent hx Smoking Status: Current every day smoker - Immunizations Immunizations Up to Date: Yes Hx Pneumococcal Vaccination: No History of Influenza Vaccine: No Physical Exam - Physical Exam General Appearance: Present: alert, no apparent distress Head Exam: Present: normal inspection, no evidence of injury Eye Exam: Normal inspection: bilateral, PERRL: bilateral Ears, Nose, Throat: Present: normal ENT inspection. Absent: pharyngeal erythema , dry mucous membranes Neck: Present: normal inspection Respiratory: Present: no respiratory distress, normal breath sounds, lungs clear Cardiovascular/Chest: Present: regular rate, rhythm Gastrointestinal/Abdominal: Present: normal bowel sounds, nontender, nondistended, soft Extremity Exam: Present: normal range of motion Neurological Exam: Present: alert, normal mood/affect, no motor/sensory deficits , co founder and chairman II-XII nml as tested. Absent: motor weakness Skin Exam: Present: normal color, warm/dry ED Progress - Results and Orders Patient's Lab Results:: I have reviewed the patient's lab results. - Vital Signs Patient's Vital Signs:: I have reviewed the patient's vital signs. Vital Signs: Vital Signs 03/21/17 18:35 Temperature 36.5 C Pulse Rate 84 Respiratory 16 Rate Blood Pressure 124/96 O2 Sat by Pulse 97 Oximetry - Progress/Reassessment Chief Complaint: General Assessment Progress Note-Subjective: 03/21/17 19:45 Pt Sx most likely d/t hyperammonemia. He clinically looks dehydrated. IV fluids and lactulose given. He has been off his lactulose for well over 1 month. No clear reason for this ammonia elevation. I discussed options with him, including restarting lactulose and re-check tomorrow vs hospital observation. He is most comfortable with hospital observation. D/W Rafael who is Hospitalist section chief, will admit obs. Departure Clinical Impression: Dizziness, Body aches, Hyperammonemia - Departure Disposition: [facility] Condition: Stable
[2017-03-21 19:03] LABS: Hematocrit 42.6 % (42.0-52.0); Hemoglobin 15.4 gm/dL (13.5-18.0); Mean Cell Volume 96.4 fl (78-100); Mean Corpuscular Hemoglobin 34.8 pg (27-31); Mean Corpuscular Hgb Conc 36.2 g/dl (32-36); Mean Platelet Volume 8.4 fl (6.0-9.5); Neutrophil # 4.2 K/mm3 (1.3-6.0); Neutrophil % 52.5 % (42-75.0); Platelet Count 148 K/mm3 (150-450); Red Blood Count 4.42 M/mm3 (4.7-6.0); Red Cell Distribution Width 12.2 % (11.5-14.0)
[2017-03-21 19:18] LABS: Albumin * 3.2 gm/dl (3.4-5.0); Anion Gap 15.1 mmol/L (6.8-13.8); BUN/Creatinine Ratio 14.1 (9.0-21.6); Bilirubin, Total 1.7 mg/dL (0.0-1.1); Ca. Corrected For Albumin 9.7 mg/dL (8.4-10.2); Calcium * 9.4 mg/dL (7.9-10.9); Carbon Dioxide 24.2 mmol/L (24-32.6); Potassium 3.3 mmol/L (3.4-4.6); Total Protein 7.8 gm/dL (6.2-8.2)
[2017-03-21 19:24] LABS: Urine Appearance Clear; Urine Bilirubin Negative (NEGATIVE); Urine Blood Negative /ul (NEGATIVE); Urine Color Yellow; Urine Ketone Negative (NEGATIVE)
[2017-03-21 19:25] LABS: Urine Bacteria None Seen; Urine Nitrite Negative (NEGATIVE); Urine Protein Negative (NEGATIVE); Urine RBC None Seen /hpf (0-5); Urine Urobilinogen Normal (NORMAL); Urine WBC 0-5 /hpf (0-5); Urine pH 5.5 pH (5.0-7.0)
[2017-03-21] MEDS ORDERED: NORMAL SALINE 1,000 ML IV ONE (19:32)
[2017-03-21] MEDS ORDERED: LACTULOSE 10 G/15 ML BTL PO SCH (20:00)
--- NOTE | 2017-03-21 21:01 | HP ---
Chief Complaint - Chief Complaint Date of Service: 03/21/17 Time of Service: 20:53 Chief Complaint: Muscle ache History of Present Illness: 51 years old WM adm to the hospital with reports of lethargic, nasal congestion and joint pain. PMH significant for Liver failure, Hep B & C,large B-cell lymphoma,hypokalemia and anemia. pt stated he wasn't feeling well at home and was concerned so he came to the ER. He denies fever, chills, cough,headaches , diaphoresis, malaise and rhinorrhea.In ER negative for influenza, Ammonia level 92, pt stated he hadn't been taking lactulose x1 months because he had no refill. He had some loose stool yesterday and K+ 3.3 in ER. He was given a dose of lactulose and IVF in ER. Will adm for obv and repeat labs in the morning. Plan of care discussed with pt, he verbalized understanding and agrees. - Patient's Past Medical History Patient History - Medical: Liver Disease, Other Patient History - Cardiac/Respiratory: Bronchitis, Hypertension, Other - smoker Patient History - Cancer: Lymphoma Patient History - Surgical Procedures: Colon Resection, Other - Colon Resection - 15cm d/t perforation 10/2014, teeth extraction 11/2014, umbellical hernia repair 10/2014, T & A Patient History - Other: None - Family History Father Family History - Medical: Family History - Cancer: Chemotherapy - In remission x 2years Mother Family History - Medical: No pertinent hx Family History - Cardiac/Respiratory: History Unknown - Social History Abuse History: No History of abuse Psych History: No pertinent hx Smoking Status: Current every day smoker Have you smoked in the past 12 months: Yes Do you dip or chew tobacco: No Patient requests Smoking Cessation Consult: No Initiate information on Smoking Cessation: Yes Alcohol Use: none Drug Use: none - Immunizations Immunizations Up to Date: Yes Hx Pneumococcal Vaccination: No History of Influenza Vaccine: No Review Of Systems (GEN) - Review of Systems Generalized/Overall Review: Present: Weakness, Malaise EENTM: Present: No Symptoms Reported Respiratory: Present: Cough Cardiac: Present: No Symptoms Reported Abdominal: Present: Diarrhea Genitourinary: Present: No Symptoms Reported Musculoskeletal: Present: Muscle Pain Neurological: Present: No Symptoms Reported Skin: Present: No Symptoms Reported Endocrine: Present: No Symptoms Reported Immunizations: IMMUNIZATION HX Immunizations Up to Date Yes History of Influenza Vaccine No Hx Pneumococcal Vaccination No Allergies/Adverse Reactions: Allergies Allergy/AdvReac Type Severity Reaction Status Date / Time No Known Allergies Allergy Verified 03/21/17 18:34 Home Medications: HOME MEDICATIONS Furosemide [Lasix] 20 mg PO DAILY 12/13/15 [Last Taken Unknown] Potassium 03/18/16 [Last Taken Unknown] Meclizine HCl [Antivert] 25 mg PO TID PRN #20 tablet 09/21/16 [Last Taken Unknown] Tenofovir Disoproxil Fumarate [Viread] 250 mg PO DAILY 09/21/16 [Last Taken Unknown] Exam - Exam Vital Signs: Vital Signs - Last Taken Temp 36.5 C 03/21/17 18:35 Pulse 84 03/21/17 18:35 Resp 16 03/21/17 18:35 BP 124/96 03/21/17 18:35 Pulse Ox 97 03/21/17 18:35 Constitutional: Present: Alert, Oriented x3, Cooperative, No distress ENT Exam: Present: hearing grossly normal Eye Exam: bilateral eye: normal inspection Neck: Present: full range of motion Back Exam: Present: normal inspection Breasts: Present: Exam deferred Respiratory: Present: chest non-tender, normal breath sounds, no respiratory distress, decreased breath sounds Cardiovascular/Chest: Present: normal peripheral pulses, regular rate, rhythm, no chest tenderness, no edema Peripheral Pulses: dorsalis-pedis (R): 2+, dorsalis-pedis (L): 2+ Abdomen: Present: Normal bowel sounds, soft, nontender, nondistended /Rectal: Present: Exam deferred Extremity: Present: normal range of motion, non-tender Skin Exam: Present: normal color, warm/dry, no cyanosis Neurologic: Present: oriented x 3 Appearance: Present: appropriate appearance, appropriate insight Eye contact: Present: cooperative, good eye contact Thoughts: Present: normal thought pattern Diagnostic Studies: Laboratory Results WBC 8.0 K/mm3 (4.0-10.5) 03/21/17 18:55 RBC 4.42 M/mm3 (4.7-6.0) L 03/21/17 18:55 Hgb 15.4 gm/dL (13.5-18.0) 03/21/17 18:55 Hct 42.6 % (42.0-52.0) 03/21/17 18:55 MCV 96.4 fl (78-100) 03/21/17 18:55 MCH 34.8 pg (27-31) H 03/21/17 18:55 MCHC 36.2 g/dl (32-36) H 03/21/17 18:55 RDW 12.2 % (11.5-14.0) 03/21/17 18:55 Plt Count 148 K/mm3 (150-450) L 03/21/17 18:55 MPV 8.4 fl (6.0-9.5) 03/21/17 18:55 Immature Gran % (Auto) 0.10 % (0.001-0.429) 03/21/17 18:55 Immature Gran # (Auto) 0.01 K/mm3 (0.000-0.0310) 03/21/17 18:55 Neutrophils % 52.5 % (42-75.0) 03/21/17 18:55 Lymphocytes % 28.9 % (20-51) 03/21/17 18:55 Monocytes % 11.2 % (0.0-9) H 03/21/17 18:55 Eosinophils % 6.2 % (0.0-3.0) H 03/21/17 18:55 Basophils % 1.1 % (0.0-1.0) H 03/21/17 18:55 Nucleated RBC % 0.0 k/mm3 (0-1) 03/21/17 18:55 Neutrophils # 4.2 K/mm3 (1.3-6.0) 03/21/17 18:55 Lymphocytes # 2.3 k/mm3 (1.5-3.5) 03/21/17 18:55 Monocytes # 0.9 k/mm3 (0.0-1.0) 03/21/17 18:55 Eosinophils # 0.5 k/mm3 (0.0-0.7) 03/21/17 18:55 Absolute Basophils 0.1 k/mm3 (0.0-0.1) 03/21/17 18:55 Sodium 136 mmol/L (132-142) 03/21/17 18:55 Plasma Sodium 137 mmol/L (130-142) 03/21/17 18:55 Potassium 3.3 mmol/L (3.4-4.6) L D 03/21/17 18:55 Chloride 100 mmol/L (97-106) 03/21/17 18:55 Carbon Dioxide 24.2 mmol/L (24-32.6) 03/21/17 18:55 Anion Gap 15.1 mmol/L (6.8-13.8) H 03/21/17 18:55 BUN 13 mg/dL (6-23) 03/21/17 18:55 Creatinine 0.92 mg/dL (0.4-1.4) 03/21/17 18:55 Est GFR (Non-Af Amer) 91 mL/min (60-130) 03/21/17 18:55 BUN/Creatinine Ratio 14.1 (9.0-21.6) 03/21/17 18:55 Random Glucose 142 mg/dL (70-110) H 03/21/17 18:55 Calcium 9.4 mg/dL (7.9-10.9) 03/21/17 18:55 Calcium Adj for Albumin 9.7 mg/dL (8.4-10.2) 03/21/17 18:55 Total Bilirubin 1.7 mg/dL (0.0-1.1) H 03/21/17 18:55 AST 33 U/L (0-48) 03/21/17 18:55 ALT 24 U/L (19-67) 03/21/17 18:55 Alkaline Phosphatase 143 U/L (50-170) 03/21/17 18:55 Ammonia 92.0 mcmol/L (11-35) H 03/21/17 18:55 Creatine Kinase 232 U/L (0-259) 03/21/17 18:55 Total Protein 7.8 gm/dL (6.2-8.2) 03/21/17 18:55 Albumin 3.2 gm/dl (3.4-5.0) L 03/21/17 18:55 Lipase 203 U/L (73-393) 03/21/17 18:55 Urine Color Yellow 03/21/17 19:10 Urine Appearance Clear 03/21/17 19:10 Urine pH 5.5 pH (5.0-7.0) 03/21/17 19:10 Ur Specific [place] 1.020 SP.GR. (1.005-1.030) 03/21/17 19:10 Urine Protein Negative mg/dL (NEGATIVE) 03/21/17 19:10 Urine Glucose (UA) Negative mg/dL (NEGATIVE) 03/21/17 19:10 Urine Ketones Negative mg/dL (NEGATIVE) 03/21/17 19:10 Urine Blood Negative /ul (NEGATIVE) 03/21/17 19:10 Urine Nitrate Negative (NEGATIVE) 03/21/17 19:10 Urine Bilirubin Negative mg/dl (NEGATIVE) 03/21/17 19:10 Urine Urobilinogen Normal EU/dl (NORMAL) 03/21/17 19:10 Ur Leukocyte Esterase Negative /ul (NEGATIVE) 03/21/17 19:10 Urine RBC None seen /hpf (0-5) 03/21/17 19:10 Urine WBC 0-5 /hpf (0-5) 03/21/17 19:10 Ur Epithelial Cells 0-5 /hpf (0-5) 03/21/17 19:10 Urine Bacteria None seen (NONE) 03/21/17 19:10 Urine Culture Comments No culture indicated 03/21/17 19:10 Influenza Type A Ag Negative (NEGATIVE) 03/21/17 19:00 Influenza Type B Ag Negative (NEGATIVE) 03/21/17 19:00 Assessment/Plan - Narrative Narrative: Hyperammonemia On adm Ammonia Level 92 pt stated he had been off lactulose x1 month due to no refills Lactulose given in ER Monitor Ammonia in AM Acute on chronic Hypokalemia Likely due to Diuretic use and pt report episode of loose stool since yesterday On adm k+ 3.3 Anticipate level dropping further after lactulose, will supplement. Hold diuretic for now and monitor BMP Stable Chronic condition Liver Failure Anemia Hep B & C Lymphoma Code status:Full GI ppx:pepcid VTE ppx:ambulate and scd Smoking cessation: Nicotine patch Time 40 minutes previous records reviewed and case discussed with Dr. Solomon - Assessment/Plan (1) Hyperammonemia Problem: Acute (2) Lymphoma Problem: Chronic (3) Anemia Problem: Chronic (4) Diffuse large B-cell lymphoma of intra-abdominal lymph nodes Problem: Chronic (5) Hepatitis B Problem: Chronic (6) Hepatitis C Problem: Chronic (7) Hypokalemia Problem: Chronic (8) Liver failure Problem: Chronic
[2017-03-21] MEDS ORDERED: POTASSIUM CHLORIDE 20 MEQ TABLET.SA PO ONE (21:45)
[2017-03-21] MEDS ORDERED: MECLIZINE HCL 25 MG TABLET PO PRN (21:46)
[2017-03-21] MEDS ORDERED: NICOTINE 21 MG PATC TD SCH (22:00)
[2017-03-22 06:59] LABS: BUN/Creatinine Ratio 16.1 (9.0-21.6); Calcium * 8.9 mg/dL (7.9-10.9); Carbon Dioxide 26.8 mmol/L (24-32.6); Estimated Creat Clear 103.8; Potassium 3.8 mmol/L (3.4-4.6)
[2017-03-22] MEDS ORDERED: TENOFOVIR DISOPROXIL FUMARATE PO SCH (09:00)
[2017-03-22] MEDS ORDERED: FUROSEMIDE 20 MG TABLET PO SCH (09:00)
[2017-03-22] MEDS ORDERED: LACTULOSE 10 G/15 ML BTL PO SCH (09:00)
[2017-03-22 09:59] VITALS: BP 94/49
--- NOTE | 2017-03-22 12:26 | DS ---
(1) Hyperammonemia Problem: Acute (2) Acute hepatic encephalopathy Problem: Acute Description of Stay: ADMISSION DATE: 03/21/2017 DISCHARGE DATE: 03/22/2017 ADMISSION HPI by DK Vickers: 51 years old WM adm to the hospital with reports of lethargic, nasal congestion and joint pain. PMH significant for Liver failure, Hep B & C,large B-cell lymphoma,hypokalemia and anemia. pt stated he wasn't feeling well at home and was concerned so he came to the ER. He denies fever, chills, cough,headaches , diaphoresis, malaise and rhinorrhea.In ER negative for influenza, Ammonia level 92, pt stated he hadn't been taking lactulose x1 months because he had no refill. He had some loose stool yesterday and K+ 3.3 in ER. He was given a dose of lactulose and IVF in ER. Will adm for obv and repeat labs in the morning. Plan of care discussed with pt, he verbalized understanding and agrees. HOSPITAL COURSE: The patient was admitted with hepatic encephalopathy secondary to noncompliance with his home lactulose. The patient admitted that he had been on lactulose for approximately one month. On admission the patients ammonia level was elevated at 92. He was restarted on lactulose and the following morning his ammonia level was down to 28. The patient felt back to baseline and was discharged home in stable condition and instructed to take his lactulose every 6 hours as needed and titrate to having 2-3 soft bowel movements per day. The patient was also instructed to follow up with primary care physician within one week. FOLLOW-UP APPOINTMENTS: Follow-up with PCP, Dr. London, within 1-2 weeks NEW OR CHANGED MEDICATIONS: Lactulose 10g PO Q6H and titrate to 2-3 soft BMs daily DISCONTINUED MEDICATIONS: None RADIOLOGY REPORTS: None Procedures Performed: none Results and Findings: Laboratory Tests 03/21/17 03/21/17 03/22/17 18:55 18:55 05:00 Potassium 3.3 L D Total Bilirubin 1.7 H AST 33 ALT 24 Alkaline Phosphatase 143 Ammonia 92.0 H 28.0 Creatine Kinase 232 Total Protein 7.8 Albumin 3.2 L Lipase 203 03/22/17 06:00 Potassium 3.8 Total Bilirubin AST ALT Alkaline Phosphatase Ammonia Creatine Kinase Total Protein Albumin Lipase Discharge Disposition: Home self care Disposition: Home self-care Condition: Stable Discharge Activity: Activity as tolerated Discharge Diet: Resume usual diet Referrals: Primitivo London MD [Primary Care Provider] - Problem Oriented Discharge Instructions to Patient/Family: Liver Failure Additional Patient Instructions (free text): Follow-up with PCP, Dr. London, within 1-2 weeks [facility] will call you tomorrow with follow up appointment. Prescriptions (Any new or edited meds): Lactulose [Enulose] 10 g PO Q6H #1 btl Complete Home Medications List: Complete Home Medication List: Furosemide [Lasix] 20 mg PO DAILY 12/13/15 Potassium 03/18/16 Meclizine HCl [Antivert] 25 mg PO TID PRN #20 tablet 09/21/16 Tenofovir Disoproxil Fumarate [Viread] 250 mg PO DAILY 09/21/16 Lactulose [Enulose] 10 g PO Q6H #1 btl 03/22/17
== END 2017-03-22 14:00 | disposition home or self-care (01) ==
LOC: ER 18:29 → MS 19:46
PROVIDERS: ADMIT Nurse Practitioner; ATTEND Internal Medicine
DX: E72.20 Disorder of urea cycle metabolism, unspecified (principal); B18.1 Chronic viral hepatitis B without delta-agent; B18.2 Chronic viral hepatitis C; K72.00 Acute and subacute hepatic failure without coma; K72.10 Chronic hepatic failure without coma; E87.6 Hypokalemia; D64.9 Anemia, unspecified
CPT/HCPCS: 36415; 80048; 80053; 81001; 82140; 82550; 83690; 85025; 87400; 99284; G0378